=== PATIENT | female | born 1940 | race Caucasian/White ===

== ENCOUNTER 2019-06-06 09:17 | Emergency (ER) | payer MEDICARE, OTHER ==
[2019-06-06] MEDS ORDERED: Sodium Chloride 0.9% 10 ML Syringe FLUSH PRN (10:04)
--- NOTE | 2019-06-06 10:08 | EDM.PDOC ---
ED HPI GENERAL MEDICAL PROBLEM - General Chief Complaint: Abdominal Pain Stated Complaint: ABD PAIN Time Seen by Provider: 06/06/19 10:05 Source of Information: Reports: Patient History Limitations: Reports: No Limitations - History of Present Illness INITIAL COMMENTS - FREE TEXT/NARRATIVE: Presents with LLQ abdominal pain x 2 days. Has been constipated, no BM x 2 days. Also has had a painful rash to left lower back x 2-3 days.Denies N/V/D. Denies prior h/o abdominal surgeries, bowel obstruction, or renal calculi. Duration: Day(s): (2) Location: Reports: Abdomen Severity: Moderate LLQ Pain Score (Numeric/FACES): 5 - Related Data Allergies Allergy/AdvReac Type Severity Reaction Status Date / Time ibuprofen [From Motrin] Allergy Insomnia Verified 05/14/18 19:21 Home Meds: Home Meds Aspirin [Adult Low Dose Aspirin EC] 81 mg PO DAILY 09/05/13 [History] Gabapentin [Neurontin] 100 mg PO DAILY 09/05/13 [History] Albuterol Sulfate [Proair Hfa] 2 puff IH QID PRN 05/14/18 [History] Albuterol/Ipratropium [DuoNeb 3.0-0.5 MG/3 ML] 3 ml IH Q4H PRN 05/14/18 [History ] Celecoxib 200 mg PO BEDTIME 05/14/18 [History] Mometasone/Formoterol [Dulera 200 Mcg/5 Mcg Inhaler] 2 puff IH BID 05/14/18 [ History] Tiotropium [Spiriva HandiHaler] 18 mcg INH DAILY #1 kit 05/21/18 [Rx] predniSONE 20 mg PO BID #20 tablet 05/21/18 [Rx] Bisacodyl [Dulcolax] 10 mg RC DAILY PRN #10 supp.rect 06/06/19 [Rx] Cefuroxime Axetil [Ceftin] 250 mg PO BID #14 tablet 06/06/19 [Rx] Famciclovir [Famvir] 500 mg PO TID #21 tablet 06/06/19 [Rx] Past Medical History HEENT History: Reports: Impaired Vision Cardiovascular History: Reports: High Cholesterol, Hypertension, Other (See Below) Other Cardiovascular History: HEART SKIPS A BEATT AT TIMES AND IS IRREGULAR. 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 - Infectious Disease History Infectious Disease History: Reports: Measles, Shingles - Past Surgical History HEENT Surgical History: Reports: None Cardiovascular Surgical History: Reports: None Respiratory Surgical History: Reports: None Female Surgical History: Reports: Mastectomy, Other (See Below) Other Female Surgeries/Procedures: LEFT MASTECTOMY Neurological Surgical History: Reports: None Musculoskeletal Surgical History: Reports: None Oncologic Surgical History: Reports: Mastectomy Dermatological Surgical History: Reports: None Social & Family History - Family History Family Medical History: Noncontributory - Caffeine Use Caffeine Use: Reports: Coffee, Tea ED ROS GENERAL - Review of Systems Review Of Systems: Comprehensive ROS is negative, except as noted in HPI. ED EXAM, GI/ABD - Physical Exam Exam: See Below Exam Limited By: No Limitations General Appearance: Alert, WD/WN, No Apparent Distress Throat/Mouth: No Airway Compromise Head: Atraumatic, Normocephalic Neck: Full Range of Motion Respiratory/Chest: No Respiratory Distress, Lungs Clear, Normal Breath Sounds Cardiovascular: Regular Rate, Rhythm, No Murmur GI/Abdominal Exam: Normal Bowel Sounds, Soft, No Distention, Tender (LLQ). No: Guarding Back Exam: CVA Tenderness (L) Neurological: Alert, Normal Cognition Psychiatric: Normal Affect, Normal Mood Skin Exam: Warm, Dry, Intact, Zoster-Like Rash (left lower back) Course - Vital Signs Last Recorded V/S: Last Vital Signs Temp 36.3 C 06/06/19 09:17 Pulse 110 H 06/06/19 09:17 Resp 18 06/06/19 09:17 BP 159/82 H 06/06/19 09:17 Pulse Ox 94 L 06/06/19 09:17 - Orders/Labs/Meds Orders: Active Orders 24 hr Category Date Time Status CULTURE URINE [RM] Stat Lab 06/06/19 12:07 Ordered Sodium Chloride 0.9% [Saline Flush] Med 06/06/19 10:04 Active 10 ml FLUSH ASDIRECTED PRN Saline Lock Insert [OM.PC] Routine Oth 06/06/19 10:04 Ordered Medication Orders Sodium Chloride (Saline Flush) 10 ml FLUSH ASDIRECTED PRN PRN Reason: Keep Vein Open Last Admin: 06/06/19 10:24 Dose: 10 ml Labs: Laboratory Tests 06/06/19 06/06/19 06/06/19 Range/Units 09:30 09:40 09:40 WBC 7.2 (4.5-12.0) X10-3/uL RBC 4.60 (3.23-5.20) x10(6)uL Hgb 12.2 (11.5-15.5) g/dL Hct 38.2 (30.0-51.3) % MCV 83.0 (80-96) fL MCH 26.5 L (27.7-33.6) pg MCHC 31.9 L (32.2-35.4) g/dL RDW 13.9 (11.5-15.5) % Plt Count 520 H (125-369) X10(3)uL MPV 7.4 (7.4-10.4) fL Neut % (Auto) 62.8 (46-82) % Lymph % (Auto) 23.7 (13-37) % [place] % (Auto) 8.5 (4-12) % Eos % (Auto) 3 (1.0-5.0) % Baso % (Auto) 2 (0-2) % Neut # (Auto) 4.6 (1.6-8.3) # Lymph # (Auto) 1.7 (0.6-5.0) # [place] # (Auto) 0.6 (0.0-1.3) # Eos # (Auto) 0.2 (0.0-0.8) # Baso # (Auto) 0.1 (0.0-0.2) # Sodium 144 (135-145) mmol/L Potassium 3.9 (3.5-5.3) mmol/L Chloride 105 (100-110) mmol/L Carbon Dioxide 31 (21-32) mmol/L BUN 16 D (7-18) mg/dL Creatinine 0.8 (0.55-1.02) mg/dL Est Cr Clr Drug Dosing TNP Estimated GFR (MDRD) > 60 (>60) BUN/Creatinine Ratio 20.0 (9-20) Glucose 110 (80-116) mg/dL Calcium 9.4 (8.6-10.2) mg/dL Total Bilirubin 0.4 (0.1-1.3) mg/dL AST 24 (5-25) IU/L ALT 17 (12-36) U/L Alkaline Phosphatase 109 (56-112) IU/L Total Protein 7.6 (6.0-8.0) g/dL Albumin 3.8 (3.2-4.6) g/dL Globulin 3.8 g/dL Albumin/Globulin Ratio 1.0 Lipase (73-393) U/L Urine Color Yellow (YELLOW) Urine Appearance Clear (CLEAR) Urine pH 6.5 (5.0-6.5) Ur Specific [place] 1.005 L (1.010-1.025) Urine Protein Trace (NEGATIVE) mg/dL Urine Glucose (UA) Normal (NORMAL) mg/dL Urine Ketones Negative (NEGATIVE) mg/dL Urine Occult Blood Large H (NEGATIVE) Urine Nitrite Negative (NEGATIVE) Urine Bilirubin Negative (NEGATIVE) Urine Urobilinogen Normal (NEGATIVE) mg/dL Ur Leukocyte Esterase Moderate H (NEGATIVE) Urine RBC 0-5 (0-5) Urine WBC Not seen (0-5) Urine Bacteria Rare H (NS) 06/06/19 Range/Units 09:40 WBC (4.5-12.0) X10-3/uL RBC (3.23-5.20) x10(6)uL Hgb (11.5-15.5) g/dL Hct (30.0-51.3) % MCV (80-96) fL MCH (27.7-33.6) pg MCHC (32.2-35.4) g/dL RDW (11.5-15.5) % Plt Count (125-369) X10(3)uL MPV (7.4-10.4) fL Neut % (Auto) (46-82) % Lymph % (Auto) (13-37) % [place] % (Auto) (4-12) % Eos % (Auto) (1.0-5.0) % Baso % (Auto) (0-2) % Neut # (Auto) (1.6-8.3) # Lymph # (Auto) (0.6-5.0) # [place] # (Auto) (0.0-1.3) # Eos # (Auto) (0.0-0.8) # Baso # (Auto) (0.0-0.2) # Sodium (135-145) mmol/L Potassium (3.5-5.3) mmol/L Chloride (100-110) mmol/L Carbon Dioxide (21-32) mmol/L BUN (7-18) mg/dL Creatinine (0.55-1.02) mg/dL Est Cr Clr Drug Dosing Estimated GFR (MDRD) (>60) BUN/Creatinine Ratio (9-20) Glucose (80-116) mg/dL Calcium (8.6-10.2) mg/dL Total Bilirubin (0.1-1.3) mg/dL AST (5-25) IU/L ALT (12-36) U/L Alkaline Phosphatase (56-112) IU/L Total Protein (6.0-8.0) g/dL Albumin (3.2-4.6) g/dL Globulin g/dL Albumin/Globulin Ratio Lipase 138 (73-393) U/L Urine Color (YELLOW) Urine Appearance (CLEAR) Urine pH (5.0-6.5) Ur Specific [place] (1.010-1.025) Urine Protein (NEGATIVE) mg/dL Urine Glucose (UA) (NORMAL) mg/dL Urine Ketones (NEGATIVE) mg/dL Urine Occult Blood (NEGATIVE) Urine Nitrite (NEGATIVE) Urine Bilirubin (NEGATIVE) Urine Urobilinogen (NEGATIVE) mg/dL Ur Leukocyte Esterase (NEGATIVE) Urine RBC (0-5) Urine WBC (0-5) Urine Bacteria (NS) Meds: Medications Generic Name Dose Route Start Last Admin Trade Name Freq PRN Reason Stop Dose Admin Sodium Chloride 10 ml 06/06/19 10:04 06/06/19 10:24 Saline Flush FLUSH 10 ml ASDIRECTED PRN Administration Keep Vein Open Discontinued Medications Generic Name Dose Route Start Last Admin Trade Name Freq PRN Reason Stop Dose Admin Iopamidol 100 ml 06/06/19 10:25 06/06/19 10:31 Isovue-370 (76%) IV 06/06/19 10:26 75 ml ONETIME ONE Administration - Radiology Interpretation Free Text/Narrative:: CT Abd/Pelvis w/ IV contrast: Narrowing of the lumen in the rectosigmoid, possibility of an annular carcinoma is difficult to exclude. Moderate colonic stool. Minimal distal AAA (3 cm). Parenchymal changes at the RLL and lingula which may be fibrotic vs. atelectatic. Departure - Departure Time of Disposition: 12:56 Disposition: Home, Self-Care 01 Condition: Good Clinical Impression: Constipation Qualifiers: Constipation type: unspecified constipation type Qualified Code(s): K59.00 - Constipation, unspecified UTI (urinary tract infection) Qualifiers: Urinary tract infection type: acute cystitis Hematuria presence: without hematuria Qualified Code(s): N30.00 - Acute cystitis without hematuria Shingles Qualifiers: Herpes zoster complications: without complications Qualified Code(s): B02.9 - Zoster without complications - Discharge Information *PRESCRIPTION DRUG MONITORING PROGRAM REVIEWED*: No *COPY OF PRESCRIPTION DRUG MONITORING REPORT IN PATIENT CARMEN: Not Applicable Prescriptions: Bisacodyl [Dulcolax] 10 mg RC DAILY PRN #10 supp.rect PRN Reason: Constipation Cefuroxime Axetil [Ceftin] 250 mg PO BID #14 tablet Famciclovir [Famvir] 500 mg PO TID #21 tablet Instructions: Urinary Tract Infection, Adult, Constipation, Adult, [id number] , Shingles, [id number] Referrals: Mickey Vasquez MD [Primary Care Provider] - 3 Days Forms: ED Department Discharge Additional Instructions: Take the prescription medication as directed. Follow up with your primary physician in 2-3 days. Return to the ER if symptoms worsen. Sepsis Event Note - Focused Exam Vital Signs: Vital Signs Temp Pulse Resp BP Pulse Ox 06/06/19 09:17 36.3 C 110 H 18 159/82 H 94 L Date Exam was Performed: 06/06/19 Time Exam was Performed: 12:53 - My Orders Last 24 Hours: My Active Orders 06/06/19 10:04 Sodium Chloride 0.9% [Saline Flush] 10 ml FLUSH ASDIRECTED PRN Saline Lock Insert [OM.PC] Routine 06/06/19 12:07 CULTURE URINE [RM] Stat - Assessment/Plan Last 24 Hours: My Active Orders 06/06/19 10:04 Sodium Chloride 0.9% [Saline Flush] 10 ml FLUSH ASDIRECTED PRN Saline Lock Insert [OM.PC] Routine 06/06/19 12:07 CULTURE URINE [RM] Stat
[2019-06-06] MEDS ORDERED: Iopamidol 755 Mg/ML 100 ML Bottle IV ONE (10:25)
--- NOTE | 2019-06-06 11:59 | CT ---
INDICATION: Left lower quadrant abdominal pain. CT ABDOMEN AND PELVIS WITH CONTRAST: Spiral 3.75 mm axial sections were obtained through the abdomen and pelvis with 70 mL of Isovue 370 at 2 cc per second with 100-second delay, with sagittal and coronary reconstructions - no comparisons. Total exam DLP was 353.19 mGy-cm. There are areas of heavy markings at the lingula and right lower lobe without a definite active infiltrate or effusion. These somewhat linear appearing areas of heavy markings may represent fibrosis and/or subsegmental atelectasis. The heart did not appear grossly enlarged, but was at the upper limits of normal in size. No pericardial effusion was seen. The left breast is absent compatible with history of mastectomy. The left kidney showed evidence of a simple cyst of tiny size in the lateral cortex mid pole area and one scar or cyst is possibly involuted at the lower pole laterally also on the left. No obstructive uropathy was seen on the left. On the right, the kidney is pelvic in location and somewhat anteriorly rotated. No definite obstruction or mass was seen at the right kidney, but there was an irregularity in the cortex which may represent a scar from either pyelonephritis or possibly an infarct. There is also noted a small essentially anechoic mass measuring 18 mm off the kidney at the midline. A very small distal abdominal aortic aneurysm is suggested measuring approximately 3 cm. Extensive calcifications are noted in the aorta, as well as in the iliac, femoral, renal arteries with some calcification also noted at the celiac axis. No definite retroperitoneal mass was seen. The study is somewhat hampered by the patient's lack of intraperitoneal fat which limits contrast severely intraperitoneally. The urinary bladder appears to be moderately distended, but otherwise unremarkable. Phleboliths are noted in the pelvis. There are a few fluid-filled loops of small bowel of questionable significance with no definite mechanically obstructive process identified. No definite free air was seen intraperitoneally. The liver appeared essentially normal. No gallstones were demonstrated. What appears to be a phrygian cap is noted at the apex of the gallbladder. The adrenal glands, spleen, and less than ideally visualized pancreas, appeared normal. No definite mass lesions, organomegaly or free fluid collections were identified in the abdomen or pelvis. There is, however, noted what could represent an annular lesion in the rectosigmoid narrowing the lumen as noted on multiple images axially and coronally, including axial image 84 and coronal images 57 through 60. Colonoscopy would be confirmatory as would barium enema. A dextroconvex scoliosis of the lower lumbar spine, dextroconcave in the upper lumbar spine is noted. Hypertrophic degenerative changes and degenerative disk disease are noted from L2 through S1 with vacuum disk phenomena at all those levels. IMPRESSION: 1. The possibility of an annular carcinoma in the rectosigmoid is difficult to exclude. Barium enema or colonoscopy may be helpful for confirmation. A contraction of the bowel is felt to be less likely with this appearance. 2. Small cystic changes are noted in both kidneys with minimal cortical scarring both kidneys. 3. Minimal distal abdominal aortic aneurysm with generalized ASD. 4. Degenerative changes and disk disease L2 through S1 with sigmoid scoliosis of the lumbar spine. 5. Left mastectomy. 6. Probable ASHD. 7. Parenchymal changes at the right lower lobe and lingula which may be fibrotic in nature although some atelectatic change may be present. 8. Pelvic kidney. Report was called to Dr. Evans at 1110 hours. [facility]
== END 2019-06-06 13:45 | disposition home or self-care (01) ==
LOC: FB.ED 09:17
DX: K59.00 Constipation, unspecified (principal); N30.00 Acute cystitis without hematuria; B02.9 Zoster without complications; I10 Essential (primary) hypertension; E78.00 Pure hypercholesterolemia, unspecified; J44.9 Chronic obstructive pulmonary disease, unspecified; Z88.6 Allergy status to analgesic agent; Z79.82 Long term (current) use of aspirin; Z79.899 Other long term (current) drug therapy
CPT/HCPCS: 36415; 74177; 80053; 81001; 83690; 85025; 87086; 99283; 99284; Q9967